=== PATIENT | female | born 1980 | race Caucasian/White ===

== ENCOUNTER → 2016-07-20 | Outpatient (REF) ==
[~2016-07-20] MED LIST: MACROBID 1100 MG/CAP; PRENATAL1 TA1 PO; ZOFRAN4 MG PO
[2016-07-20 12:01] LABS: THYROID STIMULATING HORMONE 3.25 uIU/mL (0.465-4.680)
== END ==
LOC: ZLAB.WCH 10:50
PROVIDERS: Family Medicine
DX: Z02.89 Encounter for other administrative examinations (principal)

== ENCOUNTER → 2016-11-16 | Outpatient (CLI) | payer OTHER | LOC: BHSO 12:59 | DX: F33.1 Major depressive disorder, recurrent, moderate (principal) | CPT/HCPCS: 90791-AI ==

== ENCOUNTER → 2016-12-18 | Outpatient (CLI) | payer OTHER | LOC: BHSO 10:02 | DX: F33.41 Major depressive disorder, recurrent, in partial remission (principal) ==

== ENCOUNTER → 2017-02-18 | Outpatient (CLI) | payer OTHER | LOC: BHSO 13:17 | DX: F33.41 Major depressive disorder, recurrent, in partial remission (principal) ==

== ENCOUNTER → 2017-06-06 | Outpatient (CLI) | payer OTHER | LOC: BHSO 14:49 | DX: F33.41 Major depressive disorder, recurrent, in partial remission (principal) ==

== ENCOUNTER → 2017-07-22 | Outpatient (REF) | LOC: ZLAB.WCH 18:37 | DX: Z01.89 Encounter for other specified special examinations (principal) ==

== ENCOUNTER 2017-08-14 07:36 | Day surgery (SDC) | payer OTHER ==
[~2017-08-14] VITALS: Ht 172.7 cm; Wt 79.7 kg
[2017-08-14] VITALS (7 sets, daily range): BP systolic 117–128; BP diastolic 56–84; PULSE 77–104; TEMP 98
[2017-08-14] MEDS ORDERED: CYMBALTA 30MG30 MG PO (08:15)
[2017-08-14] MEDS ORDERED: DESYREL 100MG100 MG PO (08:16)
[2017-08-14] MEDS ORDERED: WELLBUTRIN XL150 MG PO (08:16)
[2017-08-14] MEDS ORDERED: BENTYL 20MG20 MG/TAB PO (08:17)
[2017-08-14] MEDS ORDERED: NORCO 325 MG-51 TAB PO (12:51)
== END 2017-08-14 14:37 | disposition home or self-care (01) ==
LOC: SDCO 07:36
DX: K81.1 Chronic cholecystitis (principal); G43.909 Migraine, unspecified, not intractable, without status migrainosus; G47.00 Insomnia, unspecified; F41.9 Anxiety disorder, unspecified; F32.9 Major depressive disorder, single episode, unspecified; Z68.25 Body mass index [BMI] 25.0-25.9, adult
CPT/HCPCS: J0690; J1100; J1885; J2405; J2550; J2704; J2710; J3010; J7120; Q9967

== ENCOUNTER → 2017-09-04 | Outpatient (CLI) | payer OTHER ==
[~2017-09-04] MED LIST changes: +BENTYL 20MG20 MG/TAB PO; +CYMBALTA 30MG30 MG PO; +DESYREL 100MG100 MG PO; +NORCO 325 MG-51 TAB PO; +WELLBUTRIN XL150 MG PO
== END ==
LOC: BHSO 09:13
DX: F33.41 Major depressive disorder, recurrent, in partial remission (principal)
CPT/HCPCS: G0463

== ENCOUNTER → 2017-09-13 | Outpatient (REF) | LOC: ZLAB.WCH 17:54 | DX: Z01.89 Encounter for other specified special examinations (principal) ==

== ENCOUNTER → 2017-10-07 | Outpatient (REF) | LOC: ZLAB.WCH 16:07 | DX: Z01.89 Encounter for other specified special examinations (principal) ==

== ENCOUNTER 2018-04-25 05:23 | Day surgery (SDC) | payer OTHER ==
[~2018-04-25] VITALS: Ht 172.7 cm; Wt 74.8 kg
[2018-04-25] MEDS ORDERED: PRISTIQ 50 MG T50 MG PO (05:54)
[2018-04-25] MEDS ORDERED: DESYREL 50MG50 MG PO (05:54)
[2018-04-25] MEDS ORDERED: LUNESTA2 MG PO (05:55)
[2018-04-25] MEDS ORDERED: ADIPEX-P37.5 MG PO (05:55)
[2018-04-25] MEDS ORDERED: FLEXERIL 1010 MG/TAB PO (05:55)
[2018-04-25 05:56] VITALS: BP 121/91; PULSE 93; TEMP 97.9
[2018-04-25] MEDS ORDERED: PERCOCET 325 MG1 TA2 PO (07:02)
[2018-04-25] MEDS ORDERED: PHENERGAN 25 TA25 MG PO (07:02)
[2018-04-25 09:05] VITALS: BP 119/70; PULSE 115; TEMP 98.1
[2018-04-25 09:20] VITALS: BP 116/74; PULSE 95
[2018-04-25 09:35] VITALS: BP 122/65; PULSE 103
[2018-04-25 09:50] VITALS: BP 107/65; PULSE 109
[2018-04-25 10:05] VITALS: BP 109/71; PULSE 114
== END 2018-04-25 10:30 | disposition home or self-care (01) ==
LOC: SDCO 05:23
DX: M25.871 Other specified joint disorders, right ankle and foot (principal); M65.871 Other synovitis and tenosynovitis, right ankle and foot; M25.771 Osteophyte, right ankle
CPT/HCPCS: J1100; J1170; J1885; J2250; J2550; J2704; J3010; J7120

== ENCOUNTER → 2018-08-13 | Outpatient (REF) ==
[~2018-08-13] MED LIST changes: +ADIPEX-P37.5 MG PO; +DESYREL 50MG50 MG PO; +FLEXERIL 1010 MG/TAB PO; +LUNESTA2 MG PO; +PERCOCET 325 MG1 TA2 PO; +PHENERGAN 25 TA25 MG PO; +PRISTIQ 50 MG T50 MG PO
[2018-08-13 20:48] LABS: THYROID STIMULATING HORMONE 1.56 uIU/mL (0.465-4.680)
== END ==
LOC: ZLAB.WCH 20:06
PROVIDERS: Family Medicine
DX: Z01.89 Encounter for other specified special examinations (principal)

== ENCOUNTER → 2018-09-16 | Outpatient (REF) | LOC: ZLAB.WCH 18:00 | DX: Z01.89 Encounter for other specified special examinations (principal) ==

== ENCOUNTER → 2018-11-29 | Outpatient (REF) ==
[2018-11-29 13:27] LABS: HIV 1/2 Antibodies Non-Reactive; HIV-1p24 Antigen Non-Reactive
== END ==
LOC: ZLAB.WCH 12:23
PROVIDERS: Nurse Practitioner Primary Care
DX: Z01.89 Encounter for other specified special examinations (principal)